=== PATIENT | male | born 1950 | race Caucasian/White ===

== ENCOUNTER 2017-07-27 11:05 | Emergency (ER) | payer MEDICARE, SELFPAY ==
[2017-07-27 11:06] VITALS: BP 140/89; PULSE 70; RESP 18; TEMP 36.6; O2SAT 97; BMI 31.3
[2017-07-27 11:11] VITALS: PULSE 68; RESP 16; O2SAT 97
--- NOTE | 2017-07-27 11:26 | RAD_ITS ---
STUDY: X-RAY CHEST REASON FOR EXAM: Male, 67 years old. Chest pain. Lung doesn't feel right after inspiration. TECHNIQUE: AP upright portable view. COMPARISON: 05/03/2015. FINDINGS: Round confluent infiltrate in the right peripheral lung base. Increased elevation of right hemidiaphragm. Small calcified granuloma in the left lower lobe. Right pleural fluid versus pleural thickening. Normal size heart. Normal mediastinum and leonardo. Normal visualized pulmonary arteries. Normal visualized aortic arch and descending thoracic aorta. Normal visualized thoracic spine. Old right lower rib fractures overlying the right pleural fluid or pleural thickening. There is no demonstrated abnormality of the visualized soft tissue structures of the upper abdomen. RAD/Chest 1 View (Portable) IMPRESSION: 1. Round pneumonia in the right peripheral lung base. 2. Right pleural thickening versus right pleural fluid underneath the old right rib fractures. Electronically Signed: Benito Harrison MD at 12:01 EST , Service support ,
--- NOTE | 2017-07-27 11:26 | EKG12_ITS ---
Test Reason : CP Blood Pressure : / mmHG Vent. Rate : 062 BPM Atrial Rate : 062 BPM P-R Int : 160 ms QRS Dur : 120 ms QT Int : 388 ms P-R-T Axes : -17 026 052 degrees QTc Int : 393 ms Normal sinus rhythm Normal ECG Confirmed by ERROL SWANN MD ([id number]), art editor KECIA MAGAÑA ([id number]) on 07/30/2017 3:51:56 PM Referred By: JUSTUS Confirmed By:ERROL SWANN MD
[2017-07-27 11:36] LABS: Absolute Lymphocyte Count 1.52 X10^3/ul (0.83-4.51); Absolute Neutrophil Count 2.9 X10^3/uL (2.0-7.7); Basophil# 0.05 X10^3/uL; Eosinophil# 0.15 X10^3/uL; Eosinophils% 2.9 % (0-5); Hematocrit 43.5 % (40-54); Hemoglobin 15.2 g/dl (13.0-16.5); Lymphocyte # 1.52 X10^3/ul (4.0); Lymphocyte % 29.2 % (19-41); Mean Corp Hgb Conc 34.9 g/gl (32-36); Mean Corpuscular Hgb 30.2 pg (27.0-32.0); Mean Corpuscular Volume 86.5 fL (80-94); Mean Platelet Vol. 9.8 fl (6.2-12.0); Monocyte# 0.56 X10^3/uL; Monocyte% 10.8 % (0-10); Neutrophil # 2.92 X10^3/uL (2.7-7.7); Neutrophil % 56.1 % (47-70); Platelet Count 171 K/mm3 (150-450); RBC Distribution Width CV 13.1 % (11.6-14.6); RBC Distribution Width SD 41.6 fl (35.1-43.9); Red Blood Count 5.03 M/mm3 (4.6-6.2); White Blood Count 5.2 K/mm3 (4.4-11.0)
[2017-07-27 11:37] LABS: POSITIVE COUNT NO; POSITIVE DIFFERENTIAL NO; POSITIVE MORPHOLOGY NO
[2017-07-27] MEDS: Aspirin 81 MG TAB.CHEW 324 MG PO (11:52)
[2017-07-27 11:53] LABS: Anion Gap 6 (5-15); BUN 9 mg/dL (7-18); BUN/Creat Ratio 10.6 RATIO (10-20); Calcium,Total 8.5 mg/dL (8.5-10.1); Chloride 105 mmol/L (98-107); Creatinine, Serum 0.85 mg/dL (0.70-1.30); EST Glomerular Filtration Rate 96 mL/min (>60); Est Glom Filt Rate - Afr Amer 116 mL/min (>60); Estimated Creatinine Clearance 93.83 ml/min; Glucose 96 mg/dL (74-106); Potassium 3.8 mmol/L (3.5-5.1); Sodium Level 141 mmol/L (136-145)
[2017-07-27] MEDS: 0.9% Normal Saline 1,000 ML 150 ML IV (11:54)
[2017-07-27 11:59] LABS: D-Dimer Quantitative (DVT/PE) < 0.27 FEU/ug/m (0.27-0.49)
[2017-07-27 12:06] VITALS: BP 130/75; PULSE 55; RESP 13; O2SAT 98
--- NOTE | 2017-07-27 12:07 | CT_ITS ---
STUDY: CT CHEST WITH CONTRAST REASON FOR EXAM: Male, 67 years old. Chest pain. 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 RADIATION DOSAGE (If Supplied By Facility): CTDIvol = ( 16.35 ) mGy, DLP = ( 879.82 ) mGycm TECHNIQUE: Transaxial imaging was performed following intravenous administration of 100 ml of Isovue 300 contrast material. Coronal and sagittal reconstructions were performed. Individualized dose optimization techniques were used for this CT. COMPARISON: None. FINDINGS: 3.4 mm noncalcified and indeterminate subpleural nodule in the anterior segment of the right upper lobe near the inferior aspect of the major fissure. This is underneath the right thoracoplasty. There is a flat wedge-shaped atelectasis in the peripheral aspect of the lateral segment of the right middle lobe. This overlies the markedly elevated right hemidiaphragm. There is old fracture deformity with callus formation of the right lateral seventh rib. There is elevation of the right hemidiaphragm which may be due to right phrenic nerve paralysis or paresis. No pleural fluid. Normal heart and pericardium. Normal mediastinum. Normal hilar regions. Normal enhanced pulmonary arteries. Normal aorta arch and descending thoracic aorta. No acute osseous abnormality. No lytic or blastic lesions. No suspicious rib related mass but clinically in the right thoracoplasty site and the adjacent ribs. Mild fatty infiltration of the liver. Hyperdensity of the stomach near the EG junction may be postoperative. Surgical clips or coils behind the stomach. CT/Chest WITH Contrast IMPRESSION: 1. Focal atelectases in the lateral segment of the right middle lobe underneath the markedly elevated right hemidiaphragm and underneath the overlying right thoracoplasty. Superimposed pneumonia on the focal atelectases cannot be excluded. 2. Old fracture with callus formation of the right lateral seventh rib. 3. 3.4 mm noncalcified and indeterminate subpleural nodule in the anterior segment of the right upper lobe but near the caudal aspect of the major fissure. 4. Markedly elevated right hemidiaphragm may be secondary to right phrenic nerve paralysis. Chest fluoroscopy with sniff test will help clarify if desired. 5. Hepatic steatosis. 6. Clips versus coils behind the stomach. 7. Undetermined hyperdensity in the stomach near the EG junction may be postoperative. Electronically Signed: Benito Harrison MD at 13:13 EST , Service support ,
--- NOTE | 2017-07-27 13:39 | ED.VISSUMM ---
- ER Visit Summary Date of Service: 07/27/17 Chief Complaint: [Chest discomfort and cough.] History of Present Illness: The patient is a 67 M [presents the emergency department with symptoms since yesterday of a burning discomfort across his chest that is more noticeable when he takes a deep breath. Patient states that he works in a [employer] environment. Patient states that his significant other made him come in and get evaluated because she was worried about heart possibly. Patient describes a sensation of feeling like he is been running in the chest feeling somewhat sore like achy muscles. She does do lifting for work. He denies any fever. He denies productive cough. He denies recent travel or surgery. Patient states he does not have a heart history. He does not have exertional dyspnea. His symptoms do not worsen with activity. Patient states he had a stress test less than a year ago that was normal. Patient also gives history of a thoracotomy in the right side of his chest approximately a year ago to remove a mass.] Physical Examination: [HEENT-PERRLA, EOMI. Cranial nerves II through XII grossly intact. TMs clear. Mucous membranes moist. No adenopathy. Cardiovascular-regular rate and rhythm without murmur or ectopy Lungs-clear to auscultation, chest wall stable without crepitus or subcu emphysema Abdomen-normoactive bowel sounds, soft, nontender, no rebound or rigidity, no peritoneal signs. Extremities-intact ?4, normal range of motion, normal pulses, atraumatic] Test Results: [EKG obtained on arrival shows sinus rhythm with a ventricular rate of 62 bpm with no acute ST segment changes. When compared with prior EKG from April 2015 no new changes noted. CBC with differential is normal. Chemistries were normal. Troponin was less than 0.02. D-dimer was normal less than 0.27. Chest x-ray initially was read as a round pneumonia in the right lower lobe. Patient does not have pneumonia clinically and I suspected the changes seen on x-ray may have been related to his prior surgeries therefore a CT scan of the chest was obtained which was read by radiology as elevated right hemidiaphragm, small nodule right upper lobe, no evidence of recurrence of mass in the area of surgery. Nothing else significant on CT.] Emergency Department Course and Treatment: [Patient on arrival initially was given aspirin.] Treatment Plan: [I do not feel chest pain is cardiac in origin. His description of discomfort is atypical and nonexertional. It is exacerbated by breathing. Despite more than 24 hours of symptoms he has a normal EKG and normal troponin. Patient advised to follow-up with his primary care physician regarding the nodule in the right upper lobe as this will need to be followed.] Disposition: [Discharged to home in stable condition.] Impression: [Chest pain-atypical etiology uncertain] This note was generated with [employer] dictation software. It may contain incorrect words, spelling, and punctuation that were not noted in review of the chart prior to signing ED Disposition - Plan for ED Patient: Chief Complaint: Chest Pain Referrals: Laurie Cook [Primary Care Provider] -
--- NOTE | 2017-07-27 13:44 | ED.DEP ---
ED Disposition - Plan for ED Patient: Chief Complaint: Chest Pain Instructions: ED Chest Pain Atypical Unkn Cause Referrals: Laurie Cook [Primary Care Provider] - 3-5 Days
[2017-07-27 13:59] VITALS: BP 136/79; PULSE 65; RESP 18; TEMP 36.2; O2SAT 98
== END 2017-07-27 14:00 | disposition home or self-care (01) ==
PROVIDERS: Emergency Provider Emergency Medicine; Family Provider Internal Medicine Infectious Disease; PCP Internal Medicine Infectious Disease
DX: R07.89 Other chest pain (principal); K21.9 Gastro-esophageal reflux disease without esophagitis; I10 Essential (primary) hypertension; R91.1 Solitary pulmonary nodule
CPT/HCPCS: 71045; 71260; 80048; 84484; 85025; 85379; 93005; 96360; 96361; 99285; J7030; Q9967; A4216

== ENCOUNTER 2017-11-17 09:43 | Emergency (ER) | payer MEDICARE, SELFPAY ==
[2017-11-17 09:44] VITALS: BP 141/83; PULSE 91; RESP 17; TEMP 36.9; O2SAT 98; BMI 31.0
--- NOTE | 2017-11-17 10:03 | EKG12_ITS ---
Test Reason : CP Blood Pressure : / mmHG Vent. Rate : 078 BPM Atrial Rate : 078 BPM P-R Int : 168 ms QRS Dur : 092 ms QT Int : 360 ms P-R-T Axes : 014 036 023 degrees QTc Int : 410 ms Normal sinus rhythm Nonspecific ST abnormality Abnormal ECG Confirmed by HUE IVORY, ERROL ([id number]), staff editor MICHAEL HANSON ([id number]) on 11/19/2017 10:14:30 AM Referred By: BELLE Confirmed By:ERROL SWANN MD
--- NOTE | 2017-11-17 10:04 | RAD_ITS ---
STUDY: X-RAY CHEST REASON FOR EXAM: Male, 67 years old. Sternal pain for 2 days TECHNIQUE: 2 views of the chest were obtained COMPARISON: July 27, [address] FINDINGS: Small right-sided pleural effusion with right lower lobe atelectasis. Mild perihilar streaky opacities. No pneumothorax. Elevated right hemidiaphragm. Postsurgical changes are also seen overlying the right-sided ribs. Sclerotic appearance of the right-sided anterolateral seventh rib possibly old fracture. Degenerative changes in the thoracic spine IMPRESSION: Redemonstration of elevated right hemidiaphragm with right lower lobe subsegmental atelectasis in probable small right-sided pleural effusion. Postsurgical changes in the right lower lobe Electronically Signed: Pierre Baer, at 10:52 EDT Tel , Service support , RAD/Chest PA and Lateral
--- NOTE | 2017-11-17 10:05 | ED.VISSUMM ---
- ER Visit Summary Date of Service: 11/17/17 Chief Complaint: Chest pain History of Present Illness: The patient is a 67 M who presents with chest pain that has been intermittent for the past 2 days. Patient states the pain starts in the epigastric area and radiates up into his chest. Patient states pain occasionally radiates to the left upper chest. Patient admits to some intermittent nausea but denies any vomiting. Patient denies any shortness of breath. Patient denies any diaphoresis. Patient denies any cough or fevers. Cardiac risk factors include hypertension. Patient states the pain only lasts for a few seconds and is a shooting pain. Patient states he does have a history of GERD and takes pantoprazole for it. Physical Examination: Vital signs are stable. Patient is afebrile. Patient is in no acute distress. Oral mucosa is pink and moist. Neck is supple. Trachea is midline. There is no JVD noted. Heart was regular rate and rhythm. Lungs are clear and equal bilaterally. There is good respiratory effort noted. Abdomen is soft. Bowel sounds are normal. There is no tenderness noted. There is no rebound or guarding noted. Cranial nerves II through XII are intact. There are no focal motor or sensory deficits noted. The remaining physical exam is within normal limits. Test Results: EKG showed normal sinus rhythm with a rate of 78. There are no acute ST or T-wave changes noted. CBC, basic metabolic profile, troponin were obtained and were within normal limits. Chest x-ray does not show any acute cardiopulmonary process. Emergency Department Course and Treatment: Patient was given a GI cocktail here. Patient felt better on reevaluation. Patient has a HEART score of 3. Patient was advised he has low risk for acute cardiac event. Patient was instructed to take Maalox or Mylanta as needed. Patient was instructed to follow-up with his primary care physician in 5-7 days. Patient understood and was agreeable with the plan. All questions were answered. Disposition: Discharged home Impression: Gastroesophageal reflux disease This note was generated with [employer] dictation software. It may contain incorrect words, spelling, and punctuation that were not noted in review of the chart prior to signing ED Disposition - Plan for ED Patient: Disposition: Home or Assisted Living Chief Complaint: Chest Pain Diagnosis: Gastroesophageal reflux disease Instructions: ED GERD Referrals: Laurie Cook [Primary Care Provider] -
[2017-11-17] MEDS: Aspirin 81 MG TAB.CHEW 324 MG PO (10:20)
[2017-11-17 10:28] LABS: Anion Gap 4 (5-15); BUN 10 mg/dL (7-18); BUN/Creat Ratio 9.8 RATIO (10-20); Calcium,Total 8.8 mg/dL (8.5-10.1); Chloride 107 mmol/L (98-107); Creatinine, Serum 1.02 mg/dL (0.70-1.30); EST Glomerular Filtration Rate 78 mL/min (>60); Est Glom Filt Rate - Afr Amer 94 mL/min (>60); Estimated Creatinine Clearance 78.19 ml/min; Glucose 103 mg/dL (74-106); Potassium 4.1 mmol/L (3.5-5.1); Sodium Level 139 mmol/L (136-145)
[2017-11-17 10:48] LABS: Absolute Lymphocyte Count 1.45 X10^3/ul (0.83-4.51); Absolute Neutrophil Count 3.7 X10^3/uL (2.0-7.7); Basophil# 0.04 X10^3/uL; Basophil% 0.7 % (0-1); Eosinophil# 0.25 X10^3/uL; Eosinophils% 4.1 % (0-5); Hematocrit 47.9 % (40-54); Lymphocyte # 1.45 X10^3/ul (4.0); Lymphocyte % 23.8 % (19-41); Mean Corp Hgb Conc 35.5 g/gl (32-36); Mean Corpuscular Hgb 30.5 pg (27.0-32.0); Mean Corpuscular Volume 85.8 fL (80-94); Mean Platelet Vol. 10.6 fl (6.2-12.0); Monocyte% 9.8 % (0-10); Neutrophil # 3.74 X10^3/uL (2.7-7.7); Neutrophil % 61.3 % (47-70); Platelet Count 192 K/mm3 (150-450); RBC Distribution Width CV 13.4 % (11.6-14.6); RBC Distribution Width SD 41.9 fl (35.1-43.9); Red Blood Count 5.58 M/mm3 (4.6-6.2); White Blood Count 6.1 K/mm3 (4.4-11.0)
[2017-11-17 10:57] LABS: POSITIVE COUNT NO; POSITIVE DIFFERENTIAL NO; POSITIVE MORPHOLOGY NO
[2017-11-17 11:55] VITALS: BP 123/71; PULSE 65; RESP 22; O2SAT 97; O2SAT 98
[2017-11-17 12:24] VITALS: BP 126/79; PULSE 78; RESP 19; O2SAT 97
== END 2017-11-17 12:25 | disposition home or self-care (01) ==
PROVIDERS: Emergency Provider Emergency Medicine; Family Provider Internal Medicine Infectious Disease; PCP Internal Medicine Infectious Disease
DX: K21.9 Gastro-esophageal reflux disease without esophagitis (principal); I10 Essential (primary) hypertension; Z79.82 Long term (current) use of aspirin; Z79.899 Other long term (current) drug therapy; Z85.89 Personal history of malignant neoplasm of other organs and systems
CPT/HCPCS: 71046; 80048; 84484; 85025; 93005; 99285; A4216

== ENCOUNTER 2017-12-09 17:58 | Emergency (ER) | payer MEDICARE, SELFPAY ==
[2017-12-09 17:59] VITALS: BP 145/82; PULSE 86; RESP 18; TEMP 36.6; O2SAT 97; BMI 31.6
--- NOTE | 2017-12-09 18:42 | ED.DCSUM_ITS ---
- ER Visit Summary Date of Service: 12/09/17 Chief Complaint: Left calf pain History of Present Illness: The patient is a 67 M who has left calf pain that started today. He states that he was at work and it feels tight in his lower calf area. States it feels like he has a charley horse. He denies any swelling. No injuries. He has no DVT or PE risk factors. He has no chest pain or shortness of breath. He does take an aspirin a day. Physical Examination: Vital signs are reviewed. Left leg exam reveals tenderness palpation over the lower calf. There are no palpable cords. No swelling. He has 2+ pulses in the foot. They are warm to touch. His pulses are equal Test Results: Duplex ultrasound is negative. Emergency Department Course and Treatment: The patient's ultrasound is negative. There are no DVTs. He likely has a calf strain. He will ice and elevate and will follow up with his PCP Treatment Plan: [] Disposition: Discharge Impression: Left calf pain This note was generated with [employer] dictation software. It may contain incorrect words, spelling, and punctuation that were not noted in review of the chart prior to signing ED Disposition - Plan for ED Patient: Chief Complaint: Edema Referrals: Laurie Cook [Primary Care Provider] -
--- NOTE | 2017-12-09 18:45 | US_ITS ---
STUDY: VENOUS DOPPLER ULTRASOUND - LEFT LOWER EXTREMITY REASON FOR EXAM: Male, 67 years old. Tightness in cast TECHNIQUE: Ultrasound evaluation of the deep vein system to include de la cruz-scale imaging and compression was performed. De La Cruz-scale imaging and Doppler sonographic evaluation, including duplex spectral analysis and qualitative color flow sonography, was performed. COMPARISON: None. FINDINGS: Common Femoral Vein: Normal compression, spontaneity and augmentation. Normal color Doppler. Common Femoral Vein/Greater Saphenous Junction: Normal compression. Femoral Proximal: Normal compression. Femoral Middle: Normal compression, spontaneity and augmentation. Normal color Doppler. Femoral Distal: Normal compression. Popliteal Vein: Normal compression, spontaneity and augmentation. Normal color Doppler. Posterior Tibial Vein: Normal compression. Peroneal Vein: Normal compression. US/Venous Duplex Imag/Limited/Uni IMPRESSION: Normal venous Doppler ultrasound of the lower extremity. Electronically Signed: Donato Galvin DO at 19:32 EDT Tel [phone], Service support ,
--- NOTE | 2017-12-09 19:47 | ED.DEP ---
ED Disposition - Plan for ED Patient: Disposition: Home or Assisted Living Chief Complaint: Edema Instructions: ED Leg Swelling Unilateral Referrals: Laurie Cook [Primary Care Provider] -
[2017-12-09 20:29] VITALS: BP 132/74; PULSE 74; RESP 16; O2SAT 98
== END 2017-12-09 20:30 | disposition home or self-care (01) ==
PROVIDERS: Emergency Provider Emergency Medicine; Family Provider Internal Medicine Infectious Disease; PCP Internal Medicine Infectious Disease
DX: M79.662 Pain in left lower leg (principal); K21.9 Gastro-esophageal reflux disease without esophagitis; I10 Essential (primary) hypertension
CPT/HCPCS: 93971; 99282

== ENCOUNTER 2018-01-27 09:08 | Emergency (ER) | payer MEDICARE, SELFPAY ==
[2018-01-27 09:13] VITALS: BP 140/77; PULSE 71; RESP 18; TEMP 36.9; O2SAT 97; BMI 31.3
--- NOTE | 2018-01-27 09:29 | ED.DCSUM_ITS ---
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 He is also had a Barry fundoplication and a cholecystectomy with several hernia repairs. Patient states since Saturday he has had abdominal pain associated with increasing gas. A lot of belching. Mild nausea. No vomiting. No diarrhea. No constipation. No fever. No dysuria. No abdominal trauma. No black or bloody stools. Physical Examination: Well-appearing older male. Vital signs are afebrile. He does not look septic or toxic. He is in no acute distress. H EENT exam unremarkable. Neck nontender no lymphadenopathy. Lungs clear to auscultation bilaterally. Heart regular rhythm no murmur. Abdomen is soft, nontender, nondistended with normal bowel sounds. No peritoneal signs. No hernias or masses. No signs of obstruction. No right upper or right lower quadrant tenderness. Patient is moving all 4 extremities. They are neurovascularly intact. Calves are nontender without edema. Neurologically is awake and alert without any focal motor deficits. Test Results: CBC normal with a white count of 4. Normal hemoglobin. BMP normal with a gap of 8 and a creatinine of 1. Liver enzymes normal. Lipase normal 184. Troponin normal. EKG sinus rhythm rate of 60 with no signs of MN or ischemia. Emergency Department Course and Treatment: Patient was treated with p.o. Mylicon. On repeat exam at 1045 he is doing well. Abdomen is completely benign. He and I and his discussed all his test results and they are comfortable being discharged to home. Treatment Plan: Follow-up your primary care physician as needed. Mylicon for gas. He is already on Protonix for GE reflux. Disposition: Discharge Impression: Acute abdominal pain of uncertain etiology Gastroesophageal reflux. This note was generated with [employer] dictation software. It may contain incorrect words, spelling, and punctuation that were not noted in review of the chart prior to signing ED Disposition - Plan for ED Patient: Chief Complaint: Abd Pain Referrals: Laurie Cook [Primary Care Provider] -
[2018-01-27 10:10] LABS: Absolute Lymphocyte Count 1.44 X10^3/ul (0.83-4.51); Absolute Neutrophil Count 2.6 X10^3/uL (2.0-7.7); Basophil# 0.02 X10^3/uL; Basophil% 0.4 % (0-1); Eosinophils% 2.2 % (0-5); Hematocrit 45.9 % (40-54); Hemoglobin 16.2 g/dl (13.0-16.5); Lymphocyte # 1.44 X10^3/ul (4.0); Lymphocyte % 31.6 % (19-41); Mean Corp Hgb Conc 35.3 g/gl (32-36); Mean Corpuscular Hgb 30.5 pg (27.0-32.0); Mean Corpuscular Volume 86.4 fL (80-94); Mean Platelet Vol. 10.3 fl (6.2-12.0); Monocyte# 0.43 X10^3/uL; Monocyte% 9.4 % (0-10); Neutrophil # 2.55 X10^3/uL (2.7-7.7); POSITIVE COUNT NO; POSITIVE DIFFERENTIAL NO; POSITIVE MORPHOLOGY NO; Platelet Count 178 K/mm3 (150-450); RBC Distribution Width CV 13.3 % (11.6-14.6); RBC Distribution Width SD 41.6 fl (35.1-43.9); Red Blood Count 5.31 M/mm3 (4.6-6.2); White Blood Count 4.6 K/mm3 (4.4-11.0)
[2018-01-27 10:34] LABS: AST(SGOT) 19 U/L (15-37); Alanine Aminotransfer ALT/SGPT 33 U/L (16-61); Albumin, Serum 3.9 g/dL (3.2-5.0); Alkaline Phosphatase 51 U/L (45-117); Anion Gap 8 (5-15); BUN 14 mg/dL (7-18); Bilirubin, Direct 0.11 mg/dL (0.00-0.30); Calcium,Total 8.8 mg/dL (8.5-10.1); Chloride 104 mmol/L (98-107); EST Glomerular Filtration Rate 79 mL/min (>60); Est Glom Filt Rate - Afr Amer 96 mL/min (>60); Estimated Creatinine Clearance 79.76 ml/min; Globulin 3.6 g/dL (2.2-4.2); Glucose 100 mg/dL (74-106); Lipase 184 U/L (73-393); Protein, Total 7.5 g/dL (6.4-8.2); Sodium Level 142 mmol/L (136-145)
--- NOTE | 2018-01-27 10:48 | ED.DEP ---
ED Disposition - Plan for ED Patient: Disposition: Home or Assisted Living Chief Complaint: Abd Pain Instructions: ED Abdominal Pain Unkn Cause, ED GERD Referrals: Laurie Cook [Primary Care Provider] - As Needed
[2018-01-27 11:05] VITALS: BP 136/89; PULSE 63; RESP 18; O2SAT 99
== END 2018-01-27 11:05 | disposition home or self-care (01) ==
PROVIDERS: Emergency Provider Emergency Medicine; Family Provider Internal Medicine Infectious Disease; PCP Internal Medicine Infectious Disease
DX: R10.9 Unspecified abdominal pain (principal); K21.9 Gastro-esophageal reflux disease without esophagitis; Z90.49 Acquired absence of other specified parts of digestive tract; I10 Essential (primary) hypertension; Z85.828 Personal history of other malignant neoplasm of skin
CPT/HCPCS: 80048; 80076; 83690; 84484; 85025; 93005; 99284

== ENCOUNTER 2020-08-23 14:25 | Emergency (ER) | payer MEDICARE, SELFPAY ==
[2020-08-23 14:26] VITALS: BP 123/81; PULSE 67; RESP 16; TEMP 35.8; O2SAT 95; BMI 31.8
--- NOTE | 2020-08-23 14:36 | EKG12_ITS ---
Test Reason : CHEST DISCOMFORT Blood Pressure : / mmHG Vent. Rate : 063 BPM Atrial Rate : 063 BPM P-R Int : 174 ms QRS Dur : 112 ms QT Int : 394 ms P-R-T Axes : -18 -04 016 degrees QTc Int : 403 ms Normal sinus rhythm Normal ECG Confirmed by GAYLE IVORY, INGRID ([id number]), editor school photograph JEFF PERALES ([id number]) on 08/25/2020 9:51:03 AM Referred By: DERIC Confirmed By:INGRID ARAUJO MD
[2020-08-23 15:20] LABS: Absolute Lymphocyte Count 2.32 X10^3/uL (0.83-4.51); Absolute Neutrophil Count 4.2 X10^3/uL (2.0-7.7); Basophil# 0.07 X10^3/uL; Basophil% 0.9 % (0-1); Eosinophil# 0.23 X10^3/uL; Hematocrit 46.8 % (40-54); Hemoglobin 16.4 g/dL (13.0-16.5); Lymphocyte # 2.32 X10^3/ul (4.0); Lymphocyte % 30.6 % (19-41); Mean Corpuscular Hgb 30.5 pg (27.0-32.0); Mean Platelet Vol. 10.8 fl (6.2-12.0); Monocyte# 0.76 X10^3/uL; NRBC Flagged by Analyzer 0 % (0-5); Neutrophil # 4.16 X10^3/uL (2.7-7.7); Neutrophil % 55.1 % (47-70); POSITIVE COUNT YES; Platelet Count 165 K/mm3 (150-450); RBC Distribution Width CV 12.9 % (11.6-14.6); RBC Distribution Width SD 40.9 fl (35.1-43.9); Red Blood Count 5.38 M/mm3 (4.6-6.2); White Blood Count 7.6 K/mm3 (4.4-11.0)
--- NOTE | 2020-08-23 15:20 | RAD_ITS ---
STUDY: X-RAY CHEST REASON FOR EXAM: Male, 70 years old. Chest pain . History of gastroesophageal reflux. History of prior right rib resection. TECHNIQUE: Single AP portable view of the chest. COMPARISON: Comparison is made with prior study dated 11/17/2017. FINDINGS: There is elevation of the right hemidiaphragm. Blunting of the right costophrenic angle. Deformity and partial resection of the right fifth rib. Healed fracture of the right sixth rib. Normal size heart. Normal mediastinum and leonardo. Normal visualized pulmonary arteries. Normal visualized aortic arch and descending thoracic aorta. There are diffuse degenerative changes of the visualized thoracic spine. Normal visualized ribs, clavicles, and shoulders. There is no demonstrated abnormality of the visualized soft tissue structures of the upper abdomen. RAD/Chest 1 View (Portable) IMPRESSION: Elevation of the right hemidiaphragm with blunting of the right concerning angle and postsurgical changes of the right ribs. No acute abnormality is seen. Electronically Signed: Feliciano Rodriguez MD at 15:36 EDT , Service support ,
[2020-08-23 15:24] LABS: Differential Indicated SCAN CRITERIA MET
[2020-08-23 15:48] LABS: ALB/GLOB Ratio 1.1 RATIO (0.9-2.4); AST(SGOT) 20 U/L (15-37); Alanine Aminotransfer ALT/SGPT 38 U/L (16-61); Albumin, Serum 4.2 g/dL (3.2-5.0); Alkaline Phosphatase 63 U/L (45-117); Anion Gap 3 (5-15); BUN 10 mg/dL (7-18); BUN/Creat Ratio 9.7 RATIO (10-20); Calcium,Total 9.2 mg/dL (8.5-10.1); Chloride 105 mmol/L (98-107); Creatinine, Serum 1.03 mg/dL (0.70-1.30); EST Glomerular Filtration Rate 76 mL/min (>60); Est Glom Filt Rate - Afr Amer 92 mL/min (>60); Estimated Creatinine Clearance 74.29 ml/min; Globulin 3.7 g/dL (2.2-4.2); Glucose 95 mg/dL (74-106); Lipase 143 U/L (73-393); Potassium 3.7 mmol/L (3.5-5.1); Protein, Total 7.9 g/dL (6.4-8.2); Sodium Level 137 mmol/L (136-145)
[2020-08-23] MEDS: Mag Hydrox/Al Hydrox/Simeth 30 ML UDC PO (16:12)
[2020-08-23] MEDS: Famotidine 200 MG/20 ML MDV 20 MG in 0.9% Normal Saline (Pres. free 8 ML 300 MG IV (16:12)
[2020-08-23 16:14] LABS: Anisocytosis RARE; Platelet Estimate ADEQUATE (ADEQ); Red Cell Morphology N CHROM NORMAL (NORM C&C)
[2020-08-23 16:17] VITALS: BP 150/92; PULSE 70; RESP 18; O2SAT 96
--- NOTE | 2020-08-23 16:58 | ED.DCSUM_ITS ---
History of Present Illness Chief Complaint: Chest Other Informant: Patient Narrative: Male with history of hypertension, GERD and hiatal hernia presenting with worsening epigastric abdominal pain. Patient points to right below his sternum as the area of pain. He states it radiates around his lower ribs to the left. He describes it is burning in nature. Patient has had pain like this in the past has been related to acid reflux. He states has been worsening over the past 2 to 3 days. Its intermittent in nature. Does not particularly severe right now. He denies any change in his diet. He states he just wants to make sure his heart is okay and that it is just his acid reflux. He denies any other chest pain. He denies any shortness of breath or difficulty breathing. He denies any swelling of his legs. Denies any history of DVT or PE. He states he is due to have endoscopy soon. No other complaints at this time. Past Medical History - Allergies and Home Meds Allergies/Adverse Reactions: Allergies lisinopril Allergy (Verified 08/23/20 14:26) Angioedema Tetanus Vaccines and Toxoid Allergy (Verified 08/23/20 14:26) Swelling Primary Care Physician: Laurie Cook MD [Primary Care Provider] - Past Medical History: - - GERD, hypertension Surgical History: cholecystectomy, - - Niesen fundoplication Lives: Spouse/ Significant Other Smoking Status: Former smoker Review of Systems General: Denies: Chills, Fever, Sweats Eyes: Denies: Visual changes - bilaterally, Diplopia ENT: Denies: Rhinorrhea, Sore throat Cardiovascular: Reports: Chest pain. Denies: Palpitations Respiratory: Denies: Dyspnea, Cough, Dyspnea on exertion Gastrointestinal: Reports: Abdominal pain. Denies: Nausea, Vomiting, Diarrhea, Melena, Hematochezia Genitourinary: Denies: Dysuria, Hematuria, Frequency Musculoskeletal: Denies: Back pain, Extremity Pain Skin: Denies: Rash, Wounds Neurological: Denies: Headache, Weakness, Numbness Physical Exam Vital Signs/Narrative: Vital Signs Temp Pulse Resp BP Pulse Ox 08/23/20 16:17 70 18 150/92 H 96 08/23/20 14:26 96.4 F L 67 16 123/81 H 95 Inital Vital Signs reviewed: Yes General: Well nourished, Well developed, No Acute Distress Head: Normocephalic, Atraumatic Eyes: Perrl, EOMI ENT: Moist mucous membranes, No rhinorrhea Neck: Supple, Nontender Cardiovascular: Regular rate, Regular rhythm, No murmurs Respiratory: No distress, CTA bilaterally, Chest nontender Abdomen: Soft, Nontender, Nondistended, Normal bowel sounds. Negative for: Guarding, Rebound tenderness Back: Nontender, Normal Inspection Extremities: Nontender, No edema Skin: Normal color, No rash Neurological: Alert, Oriented x3, Cranial nerves II-XII grossly intact, Normal Strength, Normal Sensation Psychological: Normal affect, Normal Mood Diagnostic/Tx/Re-eval Chest X-Ray - ED: 1 View, Read by ED Physician, Read by Radiologist, No Acute Disease Clinical Impression(s) from Imaging Studies Chest X-Ray 08/23/20 15:20 IMPRESSION: Elevation of the right hemidiaphragm with blunting of the right concerning angle and postsurgical changes of the right ribs. No acute abnormality is seen. Electronically Signed: Feliciano Rodriguez MD at 15:36 EDT , Service support , Laboratory Data 08/23/20 08/23/20 15:00 15:00 WBC 7.6 RBC 5.38 Hgb 16.4 Hct 46.8 MCV 87.0 MCH 30.5 MCHC 35.0 RDW Std Deviation 40.9 RDW Coeff of Jl 12.9 Plt Count 165 MPV 10.8 Immature Gran % (Auto) 0.400 Neut % (Auto) 55.1 Lymph % (Auto) 30.6 [place] % (Auto) 10.0 Eos % (Auto) 3.0 Baso % (Auto) 0.9 Absolute Neuts (auto) 4.2 Absolute Lymphs (auto) 2.32 Nucleated RBC % 0 Platelet Estimate ADEQUATE RBC Morphology N CHROM Anisocytosis RARE Sodium 137 Potassium 3.7 Chloride 105 Carbon Dioxide 29.0 Anion Gap 3 L BUN 10 Creatinine 1.03 Estim Creat Clear Calc 74.29 Est GFR (MDRD) Af Amer 92 Est GFR (MDRD) Non-Af 76 BUN/Creatinine Ratio 9.7 L Glucose 95 Calcium 9.2 Total Bilirubin 0.70 AST 20 ALT 38 Alkaline Phosphatase 63 Troponin I < 0.015 Total Protein 7.9 Albumin 4.2 Globulin 3.7 Albumin/Globulin Ratio 1.1 Lipase 143 - Rhythm Strip Rhythm Strip: Sinus Rhythm Rate: 63 Ectopy: None - EKG Initial EKG Interpretation: Sinus Rhythm, - - Sinus rhythm at a rate of 63 Normal axis Normal intervals Normal ST segments - Medical Decision Making Patient evaluated for chest pain. He points to his subxiphoid area as the area of pain. His exam is quite benign. His history and exam seems to be consistent with GERD/gastritis as a cause of his pain. Cardiac work-up is obtained as patient is 70 years old does have a history of hypertension. He notes he is previously had 2 normal cardiac catheterizations. He states the cast were done because of the same pain. Cardiac work-up is normal. I do not suspect any acute surgical abnormalities and I do not think further imaging is indicated. Patient be discharged home to follow-up with his primary care doctor as well as his GI doctor. He is given IV Pepcid and a GI cocktail in the ER. He has improvement of his symptoms with this. Patient is counseled on signs and symptoms requiring return to the emergency room. Patient verbalizes agreement and understand this plan. Patient discharged home in stable and improved condition. ED Disposition - Plan for ED Patient: Disposition: Home or Assisted Living Diagnosis: Epigastric abdominal pain Instructions: ED Epigastric Pain (Uncertain Cause), ED Chest Pain, Uncertain Cause Referrals: Laurie Cook MD [Primary Care Provider] - Additional Instructions: Your heart did not show any signs of distress today. Please follow-up with your primary care doctor for further cardiac evaluation however I suspect that your pain is likely more from your GERD/hiatal hernia.
== END 2020-08-23 17:06 | disposition home or self-care (01) ==
PROVIDERS: Emergency Provider Emergency Medicine; PCP Internal Medicine Infectious Disease
DX: R10.13 Epigastric pain (principal); K21.9 Gastro-esophageal reflux disease without esophagitis; I10 Essential (primary) hypertension; Z90.49 Acquired absence of other specified parts of digestive tract; Z87.891 Personal history of nicotine dependence; Z88.8 Allergy status to other drugs, medicaments and biological substances
CPT/HCPCS: 71045; 80053; 83690; 84484; 85025; 93005; 99285; A4216; J3490